=== PATIENT | female | born 1995 | race African-American/Black ===

== ENCOUNTER 2019-01-04 16:42 | Emergency (ER) | payer BC ==
[~2019-01-04] VITALS: Ht 167.6 cm; Wt 65.0 kg
[2019-01-04 16:49] VITALS: BP 121/69; TEMP 99.2
[2019-01-04 17:11] LABS: COLLECTION METHOD CLEAN CATCH
[2019-01-04 17:26] LABS: TRICYCLIC ANTIDEPRESS URINE NEGATIVE
[2019-01-04] MEDS ORDERED: TRI-LO-ESTARYL1 EACH PO ×2 (17:31→18:00)
[2019-01-04 17:34] LABS: MUCOUS Present /lpf; PH 6 (5-8); SQUAMOUS EPITHELIAL 0-2 /hpf; URINE APPEARANCE Hazy; URINE BACTERIA None Seen /hpf; URINE BILIRUBIN Negative (NEGATIVE); URINE BLOOD 1+ (NEGATIVE); URINE COLOR Yellow; URINE GLUCOSE Negative (NEGATIVE); URINE KETONE Trace (NEGATIVE); URINE LEUKOCYTE ESTERASE 2+ (NEGATIVE); URINE NITRATE Negative (NEGATIVE); URINE PROTEIN(semi-quant) Negative (NEGATIVE); URINE UROBILINOGEN Negative (NEGATIVE)
[2019-01-04] MEDS ORDERED: OMNICEF 300MG300 MG PO (18:00)
[2019-01-04 18:30] VITALS: PULSE 80
== END 2019-01-04 18:30 | disposition home or self-care (01) ==
LOC: COL.ER 16:42
PROVIDERS: Emergency Medicine
DX: F32.9 Major depressive disorder, single episode, unspecified (principal); N39.0 Urinary tract infection, site not specified